=== PATIENT | female | born 1995 | race Two or more races ===

== ENCOUNTER 2017-09-08 19:22 | Emergency (ER) | payer MEDICAID ==
[~2017-09-08] VITALS: Ht 167.6 cm; Wt 69.0 kg
[~2017-09-08 19:22] MED LIST: PREN-88 PO
[2017-09-09 01:19] LABS: CLARITY URINE CLEAR (CLEAR); COLOR URINE YELLOW (YELLOW); KETONES URINE NEGATIVE (NEGATIVE); LEUKOCYTE ESTERASE URINE NEGATIVE (NEGATIVE); NITRITE URINE NEGATIVE (NEGATIVE); OCCULT BLOOD URINE 2+ (NEGATIVE); PROTEIN URINE NEGATIVE (NEGATIVE); SPECIFIC GRAVITY URINE 1.012 (1.005-1.030); UROBILINOGEN URINE 0.2 E.U./dL (0.2-1.0)
[2017-09-09] MEDS ORDERED: KETOROLAC 30MG/ML VIAL IV SCH (01:21)
[2017-09-09 02:04] LABS: CHLORIDE 111 mEq/L (98-107)
[2017-09-09 02:07] LABS: BASOPHILS % 1.1 % (0.0-2.0); EOSINOPHILS % 5.8 % (0.0-5.0); HEMATOCRIT. 36.9 % (36.0-48.0); HEMOGLOBIN. 12.3 g/dL (12.0-16.0); LYMPHOCYTES % 44.5 % (20.0-50.0); MEAN CORPUSCULAR HEMOGLOBIN 28.1 pg (28.0-32.0); MEAN CORPUSCULAR VOLUME 84.4 fL (81.0-99.0); MEAN PLATELET VOLUME 9.8 fl (7.4-10.4); MONOCYTES % 7.3 % (2.0-8.0); NEUTROPHILS % 41.3 % (40.0-76.0); PLATELET 199 x1000/uL (130-400); PROTHROMBIN TIME 10.5 sec (9.4-11.6); RED BLOOD CELL COUNT 4.37 mill/uL (4.2-5.4); RED CELL DISTRIBUTION WIDTH 14.6 % (11.6-14.6)
[2017-09-09 02:09] LABS: ETHANOL BLOOD < 10 mg/dL
[2017-09-09] MEDS ORDERED: SODIUM CHLORIDE 0.9% 1,000 ML IV ONE (02:18)
[2017-09-09] MEDS ORDERED: ONDANSETRON HCL 4MG/2ML VIAL IV SCH (02:18)
[2017-09-09] MEDS ORDERED: HYDROCODONE/APAP 7.5/325MG 1 TAB TABLET PO ONE (07:15)
[2017-09-09 07:41] VITALS: BP 95/57
== END 2017-09-09 07:44 | disposition home or self-care (01) ==
LOC: ER 19:22
DX: K29.70 Gastritis, unspecified, without bleeding (principal)
CPT/HCPCS: 36415; 76705; 80053; 81003; 81025; 83690; 85025; 85610; 96361; 96374; 96375; 99285; G0482; J1885; J2405; Z7610

== ENCOUNTER 2019-05-16 11:20 | Emergency (ER) | payer MEDICAID ==
[~2019-05-16] VITALS: Ht 165.1 cm; Wt 174.0 kg
[2019-05-16] MEDS ORDERED: SODIUM CHLORIDE 0.9% 1,000 ML IV ONE (13:00)
[2019-05-16] MEDS ORDERED: DIPHENHYDRAMINE 50MG/ML VIAL IV ONE (13:00)
[2019-05-16] MEDS ORDERED: ACETAMINOPHEN 500MG TABLET PO ONE (13:00)
[2019-05-16] MEDS ORDERED: METOCLOPRAMIDE HCL 10MG/2ML VIAL IV ONE (13:00)
[2019-05-16 13:32] LABS: BASOPHILS % 0.6 % (0.0-2.0); EOSINOPHILS % 1.5 % (0.0-5.0); HEMATOCRIT. 39.2 % (36.0-48.0); HEMOGLOBIN. 13.2 g/dL (12.0-16.0); LYMPHOCYTES % 19.9 % (20.0-50.0); MEAN CORPUSCULAR HEMOGLOBIN 28.6 pg (28.0-32.0); MEAN CORPUSCULAR VOLUME 84.7 fL (81.0-99.0); MEAN PLATELET VOLUME 9.4 fl (7.4-10.4); MONOCYTES % 4.2 % (2.0-8.0); NEUTROPHILS % 73.8 % (40.0-76.0); PLATELET 307 x1000/uL (130-400); RED BLOOD CELL COUNT 4.63 mill/uL (4.2-5.4)
[2019-05-16 13:41] LABS: CHLORIDE 108 mEq/L (98-107)
[2019-05-16 13:54] LABS: HCG SCREEN NEGATIVE
[2019-05-16 14:34] VITALS: BP 102/54
[2019-05-16] MEDS ORDERED: IOHEXOL-350 100 ML BOTTLE ONE (16:39)
== END 2019-05-16 15:34 | disposition home or self-care (01) ==
LOC: ER 11:20
DX: R51 Headache (principal); M54.2 Cervicalgia
CPT/HCPCS: 36415; 70496; 70498; 80048; 84703; 85025; 96374; 96375; 99284; J1200; J2765; J7030; Q9967; Z7610